=== PATIENT | male | born 1980 | race Caucasian/White ===

== ENCOUNTER 2018-12-31 12:55 | Outpatient (REF) | payer OTHER, SELFPAY ==
[2018-12-31 14:07] LABS: Calculated LDL 169 mg/dL; Cholesterol 235 mg/dL (50-200); Glucose 83 mg/dL (70-100); HDL Cholesterol 52 mg/dL (40-60); Triglyceride 74 mg/dL (30-150)
== END 2018-12-31 13:15 ==
LOC: NCHCN 12:55
PROVIDERS: PCP Family Medicine; Visit Provider Family Medicine
DX: Z00.00 Encounter for general adult medical examination without abnormal findings (principal); Z13.1 Encounter for screening for diabetes mellitus; Z13.88 Encounter for screening for disorder due to exposure to contaminants; Z13.220 Encounter for screening for lipoid disorders
CPT/HCPCS: 80061; 82947; 83721; 83655

== ENCOUNTER 2022-04-15 14:07 | Outpatient (REF) | payer OTHER, SELFPAY ==
[2022-04-15 15:22] LABS: Hemoglobin A1C 5.3 % (<5.7)
[2022-04-15 15:49] LABS: Calculated LDL 131 mg/dL (<100); Cholesterol 205 mg/dL (<200); HDL Cholesterol 65 mg/dL (40-60); Triglyceride 49 mg/dL (<150)
== END 2022-04-15 14:08 | disposition home or self-care (01) ==
LOC: NCHCN 14:07
PROVIDERS: PCP Family Medicine; Visit Provider Family Medicine
DX: Z00.00 Encounter for general adult medical examination without abnormal findings (principal); Z77.011 Contact with and (suspected) exposure to lead; Z13.220 Encounter for screening for lipoid disorders; Z13.1 Encounter for screening for diabetes mellitus
CPT/HCPCS: 80061; 83036; 83655

== ENCOUNTER 2023-08-08 16:01 | Outpatient (REF) | payer BC, SELFPAY ==
[2023-08-08 20:03] LABS: Calculated LDL 191 mg/dL (<100); Cholesterol 274 mg/dL (<200); HDL Cholesterol 67 mg/dL (40-60); Triglyceride 81 mg/dL (<150)
== END 2023-08-08 16:02 | disposition home or self-care (01) ==
LOC: NCHCN 16:01
PROVIDERS: PCP Family Medicine; Visit Provider Family Medicine
DX: Z77.011 Contact with and (suspected) exposure to lead (principal); Z00.00 Encounter for general adult medical examination without abnormal findings
CPT/HCPCS: 80061; 83655

== ENCOUNTER 2024-08-31 15:30 | Outpatient (REF) | payer OTHER, SELFPAY ==
[2024-08-31 19:27] LABS: Calculated LDL 161 mg/dL (<100); Cholesterol 246 mg/dL (<200); HDL Cholesterol 62 mg/dL (>or=40); Triglyceride 115 mg/dL (<150)
== END 2024-08-31 15:31 | disposition home or self-care (01) ==
LOC: NCHCN 15:30
PROVIDERS: PCP Student in an Organized Health Care Education/Training Program; Visit Provider Student in an Organized Health Care Education/Training Program
DX: E78.5 Hyperlipidemia, unspecified (principal); R78.71 Abnormal lead level in blood
CPT/HCPCS: 80061; 83655

== ENCOUNTER 2024-11-01 06:17 | Day surgery (SDC) | payer OTHER, SELFPAY ==
--- NOTE | 2024-10-31 08:04 | W.PM.DSUDISC ---
Date of service: 11/01/24 Discharge Plan Disposition Patient Disposition: Home Condition: Good Discharge Details Reason For Visit: screening colonoscopy Attending Provider: Vic Orozco Primary Care Provider: Srikanth Hook Home Meds and New Rx's Prescriptions: Continued [id number] 02-03-01-150 mg capsule PO DAILY Methyline Blue PO DIRECTED LTheanine PO DAILY Discontinued bisacodyl [Dulcolax (bisacodyl)] 5 mg tablet,delayed release (DR/EC) 5 mg PO ONCE Qty: 4 0RF Rx Instructions: Take per colonoscopy instructions provided by ordering providers office polyethylene glycol 3350 17 gram/dose powder 17 g PO ONCE Qty: 238 0RF Rx Instructions: Take per colonoscopy instructions provided by ordering providers office Discharge Instructions Additional Instructions: Mo, it was very nice to meet you today, I hope you are comfortable through the procedure and make a quick recovery. Things went very smoothly. Your prep was excellent, we could see everything fine. I did not see any signs of tumors, polyps, or any other worrisome pathology. With a negative screening colonoscopy today, I recommend a follow-up in 10 years 1. If tolerated, consume a soft, low fiber diet for 1-2 days. 2. Do not drive, drink alcohol, operate machinery, make critical decisions, or do activities that require coordination or balance for 24 hours. 3. Because air was put into your colon during the procedure, expelling air from your rectum (passing gas or farting) is normal. 4. You may not have a bowel movement for 1-3 days because of the colonoscopy prep. This is normal. 5. Go directly to the emergency room if you notice any of the following: Develop chills (warm to touch), or if you have a thermometer and your temperature is above 101 Difficulty breathing or difficultly swallowing Persistent vomiting Severe abdominal pain, other than gas cramps Severe chest pain Black, tarry stools Any bleeding ? exceeding one tablespoon 6. Call your physician if the site where your intravenous was started becomes red, swollen, painful, and warm to touch. 7. Your physician has reviewed your pre-procedure medications. Please continue to take those medications as previously ordered. You will be given specific information/education regarding any changes to your medications before leaving. Activity:: Activity as Tolerated Diet:: As Tolerated Discharge Orders Discharge Orders: Discharge Order (Routine); Ordered 10/31/24 Ordered By: Vic Orozco DS: Diagnosis Discharge Diagnosis (1) Encounter for screening colonoscopy: Status: Acute Asessment and Plan: Negative screening colonoscopy; follow-up in 10 years
--- NOTE | 2024-10-31 08:05 | W.COLOREPORT ---
Date of service: 11/01/24 Time of Service: 07:51 Colonoscopy Report Date of procedure: 11/01/24 Pre-op diagnosis general: screening colonoscopy Post-op diagnosis procedure note: other (Negative screening colonoscopy) Procedure: colonoscopy Surgeon: Vic Orozco Anesthesia Type: General:No Airway Estimated blood loss (mL): 0 Pathology: none sent Complications: None Disposition: same day Indications: Mo is a 44 year old man who needs a screening colonoscopy Prep: Miralax/Dulcolax Procedure Start Time: 07:32 Procedure End Time: 07:46 Retraction Time: 6 Findings: Negative screening colonoscopy Procedure Description: After the induction of anesthesia, and with the patient in left lateral decubitus position, I began by performing an external anorectal exam.? Perineum and skin were normal, as was the anal verge.? There was no evidence of external hemorrhoids.? Next, I performed a digital rectal exam.? I did not appreciate any abnormal findings.? Next, I advanced a colonoscope into the rectal vault.? I performed retroflexion.? This appeared normal.? Using insufflation, I then advanced the colonoscope beyond the rectal folds and into the sigmoid colon before advancing towards the cecum.? The quality of the prep was excellent.? The scope was noted to be in the cecum by identification of the ileocecal valve and appendiceal orifice.? I then began withdrawing the colonoscope using repeated irrigation as necessary for full evaluation of the colonic mucosa. ?Once the scope was withdrawn to the level of the rectum, great care was taken to examine portions of the rectal folds.? Saw no signs of tumors, polyps, or any other pathology. Finally, the scope was withdrawn and the patient was brought to the same-day surgery recovery unit as the anesthetic wore off. ?The findings and instructions were shared with the patient prior to discharge. Lemhi Bowel Prep Lemhi Bowel Prep Right Colon: 3 Left Colon: 3 Transverse Colon: 3 Total Score: 9
--- NOTE | 2024-10-31 17:56 | W.ANESPRE ---
General Info Date of Service Date Performed: 11/01/24 Height: 5 ft 8 in Weight: 66 kg Body Mass Index (BMI): 22.1 Surgical Procedure: Operation Date: 11/01/24 07:35 Proposed Procedure Side Surgeon dinora Orozco MD Meds Allergies and Home Medications Allergies Allergy/AdvReac Type Severity Reaction Status Date / Time avocado Allergy Intermediate burning in Verified 11/01/24 06:27 throat Home Medication ?Medication ?Instructions ?Recorded CECY 50 mg-5HTP 50 mg-theanine 50 cap PO DAILY 10/29/24 mg-taur 150 [id number] capsule LTheanine PO DAILY 10/29/24 Methyline Blue PO DIRECTED 10/29/24 Current Visit Medications: Current Medications Generic Name Dose Route Start Last Admin Trade Name Freq PRN Reason Stop Dose Admin Ringer's Solution 1,000 mls @ 80 mls/hr 11/01/24 06:00 IV 11/28/24 23:59 [facility] IV Miscellaneous Supplies 1 each 11/01/24 06:00 Iv Access IV 11/28/24 23:59 DIRECTED ADRIANNA Ondansetron HCl 4 mg 10/31/24 08:06 Ondansetron 4 Mg/2 Ml Vial IVP 11/30/24 08:05 Q4H PRN PRN Nausea / Vomiting Sodium Chloride 0 ml 11/01/24 06:00 Normal Saline Flush 10 Ml Syr IV 11/28/24 23:59 PRN PRN Sodium Chloride 0 ml 11/01/24 06:00 Normal Saline 10 Ml Vial IJ 11/28/24 23:59 DIRECTED PRN Sterile Water 0 ml 11/01/24 06:00 Water,Injection,Sterile 10 Ml Vial IJ 11/28/24 23:59 DIRECTED PRN PFSH Active Problems Active Problems: Problem Status Onset Code Hyperlipidemia Acute E78.5 Medical History Medical History (Updated 10/14/24 @ 00:03 by JUAN RENE) Pneumonia (~08/18/24) Bilateral carpal tunnel syndrome 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 Eczema Tobacco Smoking/Tobacco Use Status: Never Alcohol Alcohol Intake: current Alcohol intake frequency: 0-2 drinks per day Alcohol type: beer, wine and hard liquor Substance Use Substance use: Never Substance use type: does not use Vital Signs and Lab Results Vital Signs Most Recent Vital Signs in EMR: Temp Pulse Resp BP Pulse Ox 36.7 C 57 L 16 117/85 99 11/01/24 06:29 11/01/24 06:29 11/01/24 06:29 11/01/24 06:29 11/01/24 06:29 Lab Results Blood Type / Crossmatch: No Data to Display Complete Blood Count: No Data to Display Complete Metabolic Panel: No Data to Display Liver Function Panel: No Data to Display Coagulation Panel: No Data to Display Cardiac Panel: No Data to Display Arterial Blood Gas: No Data to Display Venous Blood Gas: No Data to Display Pancreas Panel: No Data to Display Thyroid Panel: No Data to Display Infectious Disease: No Data to Display Blood Cultures: No Data to Display Toxicology Panel: No Data to Display Anesthesia Assessment and Plan Anesthesia History Personal History: No History of General Anesthesia Family History: No Family History of Anesthesia Complications Exercise Tolerance Exercise Tolerance: Metabolic Equivalents>4 Cardiac & Pulmonary Exam Cardiac Exam: Normal S1/S2 Heart Sounds Pulmonary Exam: Clear Bilateral Breath Sounds Implantable Cardiac Device Does patient have a Pacemaker or an ICD?: No Airway Exam Known Difficult Airway: No Mallampati Class: 3 Mouth Opening: Normal (> 3cm) Thyromental Distance: Less than 3 cm Neck Range of Motion: Full ROM Neck Circumference: Normal Teeth Condition: Normal Dentition ASA Classification ASA Score: ASA 2 Emergency Case?: No NPO Status NPO Status: NPO Clears >2 hours, Solids >8 hours Anesthesia Plan Resuscitation Status: Full Code Anesthesia Technique: General Anesthesia Airway Planned: Natural Airway Monitors Used: Standard Monitors Preoperative Comments:: 44 yo male for colo. Sig PMHx: never smoker, occ EtOH.
[2024-11-01 06:29] VITALS: BP 117/85; PULSE 57; RESP 16; TEMP 36.7; O2SAT 99
[2024-11-01] MEDS: Lactated Ringers 1,000 ML 80 ML IV (06:58)
[2024-11-01 07:17] VITALS: BMI 22.1
[2024-11-01 07:50] VITALS: BP 104/65; PULSE 56; RESP 12; TEMP 36.3; O2SAT 98
--- NOTE | 2024-11-01 08:02 | W.ANESPOSTOP ---
Postoperative Evaluation Date, Time and Location Date Performed: 11/01/24 Time Performed: 08:02 Patient Location: Day Surgery Unit Vital Signs Most Recent Imported Vital Signs: Most Recent Vital Signs Temp Pulse Resp BP Pulse Ox 36.3 C L 56 L 12 104/65 98 11/01/24 07:50 11/01/24 07:50 11/01/24 07:50 11/01/24 07:50 11/01/24 07:50 Pain Score Most Recent Pain Score: Most Recent Pain Score Pain Level 0 11/01/24 07:50 Assessment Mental Status: Awake (Alert & Oriented to Patient Baseline) Airway and Respiratory Function: Patent airway with normal (patient baseline) respiratory exam Cardiovascular Function: Hemodynamically Stable Hydration Status: Adequately Hydrated Nausea & Vomiting: No Nausea or Vomiting Pain: Pt. Denies Any Pain Peripheral Nerve Block: Patient did not receive a nerve block
[2024-11-01 08:16] VITALS: BP 111/73; PULSE 64; RESP 14; TEMP 36.4; O2SAT 99
== END 2024-11-01 08:25 | disposition home or self-care (01) ==
LOC: SUR 06:17
PROVIDERS: PCP Student in an Organized Health Care Education/Training Program; Visit Provider Surgery
PROC: 0DJD8ZZ Inspection of Lower Intestinal Tract, Via Natural or Artificial Opening Endoscopic (ICD-10-PCS; CPT 45378; principal; 2024-11-01 07:30)
DX: Z12.11 Encounter for screening for malignant neoplasm of colon (principal)
CPT/HCPCS: 45378; J2704

== ENCOUNTER 2025-01-03 15:53 | Outpatient (REF) | payer OTHER, SELFPAY ==
[2025-01-03 16:57] LABS: Abs Immature Grans 0.01 10^3/uL (0.0-0.06); HCT 44.8 % (40.0-50.0); HGB 15.4 g/dL (13.5-17.5); Immature Grans % 0.3 %; MCH 31.1 pg (27.0-33.0); MCHC 34.4 % (32.0-36.0); MCV 91 fL (80-95); MPV 9.5 fL (8.0-11.0); Platelet Count 216 10^3/uL (130-400); RBC 4.95 10^6/uL (4.36-5.78); RDW 12.3 % (11.8-14.1); RDW-SD 40.7 fL; WBC 3.66 10^3/uL (4.4-10.8)
[2025-01-03 17:12] LABS: ALT 75 U/L (16-63); AST 58 U/L (15-37); Albumin 3.9 g/dL (3.4-5.0); Alkaline Phosphatase 56 U/L (46-116); Anion Gap 9.6 mmol/L (3-11); BUN 16 mg/dL (7-18); Bilirubin, Total 0.4 mg/dL (0.2-1.0); CO2 28.4 mmol/L (21.0-32.0); Calcium 9.0 mg/dL (8.5-10.1); Chloride 100 mmol/L (98-107); Estimated GFR 107.33 (mL/min/1.73m2); Glucose 151 mg/dL (74-106); Potassium 4.1 mmol/L (3.5-5.1); Sodium 138 mmol/L (136-145); Total Protein 7.2 g/dL (6.4-8.2)
[2025-01-05 10:43] LABS: Lyme Ab w Rflx to Lyme Confirm Negative (Negative)
== END 2025-01-03 15:54 | disposition home or self-care (01) ==
LOC: LBN 15:53
PROVIDERS: PCP Student in an Organized Health Care Education/Training Program; Visit Provider Nurse Practitioner Family
DX: A69.20 Lyme disease, unspecified (principal)
CPT/HCPCS: 80053; 85025; 86618

== ENCOUNTER 2025-03-16 15:06 | Outpatient (REF) | payer OTHER, SELFPAY ==
[2025-03-16 16:41] LABS: Calculated LDL 145 mg/dL (<100); Cholesterol 201 mg/dL (<200); HDL Cholesterol 48 mg/dL (>or=40); Triglyceride 44 mg/dL (<150)
== END 2025-03-16 15:07 | disposition home or self-care (01) ==
LOC: NCHCN 15:06
PROVIDERS: PCP Student in an Organized Health Care Education/Training Program; Visit Provider Student in an Organized Health Care Education/Training Program
DX: E78.5 Hyperlipidemia, unspecified (principal)
CPT/HCPCS: 80061